=== PATIENT | female | born 1980 | race Caucasian/White ===

== ENCOUNTER 2018-06-03 13:26 | Emergency (ER) | payer OTHER ==
--- NOTE | 2018-06-03 14:29 | EDM.PDOC ---
ED HPI GENERAL MEDICAL PROBLEM - General Chief Complaint: General Stated Complaint: SORE THROAT/BODY ACHES Time Seen by Provider: 06/03/18 13:50 - History of Present Illness INITIAL COMMENTS - FREE TEXT/NARRATIVE: 37-year-old female with a sore throat for the past 48 hours. Some cervical adenopathy, no other significant cold symptoms such as runny nose or cough. She is unsure if she's been running fevers. No known strep exposure. Denies nausea or vomiting. Onset: Gradual Duration: Day(s): (2 days) Associated Symptoms: Reports: Other (Generalized body aches). 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 Denies: Ear Pain Respiratory: Denies: Shortness of Breath, Cough Cardiovascular: Denies: Chest Pain GI/Abdominal: Denies: Abdominal Pain, Nausea, Vomiting Musculoskeletal: Reports: Muscle Pain Skin: Reports: No Symptoms Neurological: Denies: Headache ED EXAM, GENERAL - Physical Exam Exam: See Below Exam Limited By: No Limitations General Appearance: Alert, No Apparent Distress Eye Exam: Bilateral Eye: Normal Inspection Ears: Normal TMs Throat/Mouth: Other (Patient has palatal and tonsillar erythema with palatal petechia) Neck: Lymphadenopathy (R) (Mild cervical adenopathy bilaterally), Lymphadenopathy (L) Respiratory/Chest: No Respiratory Distress, Lungs Clear Cardiovascular: Regular Rate, Rhythm Course - Vital Signs Last Recorded V/S: Last Vital Signs Temp 95.5 F 06/03/18 13:45 Pulse 79 06/03/18 13:45 Resp 16 03/16/19 13:45 BP 106/73 06/03/18 13:45 Pulse Ox 98 06/03/18 13:45 - Re-Assessments/Exams Free Text/Narrative Re-Assessment/Exam: 06/03/18 14:45 Rapid strep was obtained which was positive. Patient was put on amoxicillin 500 mg 3 times a day for a minimum of 7 days, recheck in 2-3 days if not improving. Departure - Departure Time of Disposition: 14:32 Disposition: Home, Self-Care 01 Condition: Good Clinical Impression: Strep pharyngitis - Discharge Information Instructions: Strep Throat, [id number] Referrals: PCP,None [Primary Care Provider] - Forms: ED Department Discharge Care Plan Goals: Take antibiotic 3 times a day for at least 7 days. Recheck in 2-3 days if not improving satisfactorily. Return anytime if worsening despite treatment such as vomiting the medication or worsening symptoms.
== END 2018-06-03 14:32 | disposition home or self-care (01) ==
LOC: JP.ED 13:26
DX: J02.0 Streptococcal pharyngitis (principal); Z79.899 Other long term (current) drug therapy
CPT/HCPCS: 87430; 99283